=== PATIENT | male | born 1990 | race Caucasian/White ===

== ENCOUNTER 2023-11-14 10:54 | Emergency (ER) | payer OTHER ==
[~2023-11-14] VITALS: Ht 180.3 cm; Wt 79.5 kg
[2023-11-14 11:01] VITALS: TEMP 97.8
[2023-11-14 13:57] LABS: URINE APPEARANCE CLEAR (CLEAR/HAZY); URINE BLOOD NEGATIVE (NEGATIVE); URINE COLOR YELLOW (YELLOW); URINE GLUCOSE NEGATIVE (NEGATIVE); URINE KETONE NEGATIVE (NEGATIVE); URINE NITRATE NEGATIVE (NEGATIVE); URINE PROTEIN(semi-quant) NEGATIVE (NEGATIVE); URINE UROBILINOGEN 0.2 E.U/dL (0.2-1.0)
[2023-11-14 14:22] LABS: COLLECTION METHOD CLEAN CATCH
[2023-11-14 15:06] VITALS: BP 118/81; PULSE 70
== END 2023-11-14 15:06 | disposition home or self-care (01) ==
LOC: COL.ER 10:54
PROVIDERS: Physician Assistant
DX: N50.812 Left testicular pain (principal)